=== PATIENT | male | born 1950 ===

== ENCOUNTER 2018-05-29 07:31 | Outpatient (CLI) | payer OTHER ==
[~2018-05-29] VITALS: Ht 152.4 cm; Wt 70.3 kg
== END 2018-05-29 07:45 | disposition home or self-care (01) ==
LOC: OFIC 805 07:31
DX: H90.3 Sensorineural hearing loss, bilateral (principal); H93.13 Tinnitus, bilateral; H91.22 Sudden idiopathic hearing loss, left ear

== ENCOUNTER 2018-05-29 11:04 | Outpatient (CLI) | payer OTHER | END 2018-05-29 15:00 | disposition home or self-care (01) | LOC: LAB 11:04 | DX: N20.0 Calculus of kidney (principal) ==

== ENCOUNTER 2018-07-09 08:12 | Outpatient (CLI) | payer OTHER | END 2018-07-09 08:18 | disposition home or self-care (01) | LOC: SONOGRAMA 08:12 | DX: N63.20 Unspecified lump in the left breast, unspecified quadrant (principal) ==